=== PATIENT | female | born 1955 | race Caucasian/White ===

== ENCOUNTER → 2017-02-21 | Outpatient (CLI) | payer MEDICAID ==
[2017-01-17 09:00] VITALS: BP 123/73
--- NOTE | 2017-02-21 14:13 | RAD ---
HISTORY: Left foot pain Study: Three views of the left foot Comparison: None Findings: There are 3 cannulated screws noted within the 1st metatarsal and 1st proximal phalanx. No perihardw are lucency. Normal alignment. No acute fracture or dislocation. The soft tissues are unremarkable. There are degenerative changes of the 1st MTP joint and mild to moderate plantar calcaneal spurring . IMPRESSION: 1. Postsurgical changes of the 1st digit. 2. Degenerative changes as described. Reported By:
== END ==
LOC: RAD 13:12
PROVIDERS: ATTEND Orthopaedic Surgery
DX: M79.672 Pain in left foot (principal)
CPT/HCPCS: 73630

== ENCOUNTER 2017-03-04 16:20 | Emergency (ER) | payer MEDICAID ==
[2017-03-04 16:28] VITALS: BP 126/82; BMI 27.2
[2017-03-04] MEDS ORDERED: DEMEROL INJ IM ONE (17:01)
[2017-03-04] MEDS ORDERED: ZOFRAN INJ 4 MG VIAL IM ONE (17:01)
--- NOTE | 2017-03-04 17:01 | ED.ABDFE ---
HPI - Time seen Time seen: 17:00 - PCP Primary Care Physician: STEPH RAMIREZ - HPI Comment HPI Comment: HISTORY DIVERTICULITIS AND COLITIS. RECENT HOSPILIZATION FOR SAME. PAIN STARTED AGAIN FEW DAYS AGO AND GOT WORSE TODAY. NO FEVER. - Complaint Chief Complaint Doctors Comments: LEFT FLANK PAIN Chief Complaint:: PT C/O INTERMITTANT LEFT SIDE PAIN THAT STARTED SUNDAY AND THAT SHE WAS IN THE HOSPITAL FOR 6 DAYS FOR DIVERTICULITIS.. - Nurses notes reviewed Nurses Notes Review: Yes - Source History Provided: Patient - Mode of arrival Mode of Arrival: Ambulatory - Timing Onset of Chief Complaint: 02/28/17 Came on: Suddenly - Duration Duration: Intermittent Duration: Days - Location Location: [facility] - Severity Severity: Moderate - Quality Quality: Sharp - Context Onset: Suddenly - Modifying Worsening Factors: Nothing Improving Factors: Nothing - Associated signs and symptoms Associated Signs and Symptoms: Nausea PMH - PMH Past Medical History: Yes Past Medical History: Arthritis, Asthma, COPD, Coronary Artery Disease, Depression, Dyslipidemia, Hypertension Past Medical History Comment: DIVERTICULOSIS, THYROID Past Surgical History: Yes Surgical History: Hysterectomy, Ortho Surgery - Family History History of Family Medical Conditions: Yes Family Medical History: Cancer, Heart Failure, Hypertension - Social History Does patient currently use any type of tobacco product: Yes Have you used tobacco products in the last 12 months: Yes Type of Tobacco Use: Cigarettes How many years tobacco product used: 35 Does any household member use tobacco: No Alcohol Use: None Do you use any recreational Drugs:: No Lives With: Spouse Lives Where: Home - infectious screening In the last 2 months have you had wt loss of >10#?: NO Have you had fever, night sweats or hemotysis?: No Have you traveled outside the country in the last 6 months?: No Isolation: Standard ROS - Review of Systems Constitutional: No Symptoms Reported Eyes: No Symptoms Reported ENTM: No Symptoms Reported Respiratoy: No Symptoms Reported Cardiovascular: No Symptoms Reported Gastrointestinal/Abdominal: Abdominal Pain Genitourinary: Other (LT FLANK PAIN) Neurological: No Symptoms Reported Musculoskeletal: Back Pain (LEFT FLANK AREA.), Left, Other (FLANK PAIN) Integumentary: No Symptoms Reported Hematologic/Lymphatic: No Symptoms Reported Endocrine: No Symptoms Reported All Other Systems: Reviewed and Negative PE - Vital Signs Vitals: Temperature 98.8 F Pulse Rate 93 Respiratory Rate 20 Blood Pressure [Right Arm] 123/73 Blood Pressure [Left Arm] 134/77 Blood Pressure 126/82 O2 Sat by Pulse Oximetry 98 - General Limitations: No Limitations General Appearance: Alert - Head Head Exam: Normal Inspection - Eyes Eye exam: Normal Appearance - ENT ENT Exam: Normal External Ear Exam - Neck Neck Exam: Trachea Midline - Chest Chest Inspection: Symmetric Chest Wall Rise - Respiratory Respiratory Exam: Normal Lung Sounds Bilat Respiratory Exam: Bilateral Clear to Auscultation - Cardiovascular Cardiovascular Exam: Regular Rate, Normal Rhythm, Normal Heart Sounds - Abdominal Exam Abdominal Exam: Normal Bowel Sounds, Soft, Tenderness Abdominal Tenderness: LLQ - Rectal Rectal Exam: Deferred - Back Back Exam: (L) CVA Tenderness - Extremeties Extremities Exam: Normal Inspection - : Speculum Exam (Female): Deferred : Bimanual Exam (female): Deferred - Neurologic Neurological Exam: Alert, Oriented X3 - Skin Skin Exam: Normal Color MDM - Additional Information Obtained From Additional information provided by: Family - Differential Diagnosis Differential Diagnosis- Considerations may include:: Bowel Obstruction, Diverticular disease, Ovarian cyst/torsion, Urinary tract infection, Urolithiasis Course - Treatment Treatment: SEE ORDERS - Education/Counseling Education/Counseling: Patient, Family, Education Educated On: Treatment, Diagnosis, Needs for Follow Up ROR - Labs Reviewed Laboratory Results Reviewed?: Yes Result Diagrams: 03/04/17 17:05 03/04/17 17:05 Laboratory: WBC 7.4 X10^3/uL (3.6-10.0) 03/04/17 17:05 RBC 4.42 X10^6/uL (3.5-5.4) 03/04/17 17:05 Hgb 13.7 g/dL (12.0-16.0) 03/04/17 17:05 Hct 40.6 % (36.0-47.0) 03/04/17 17:05 MCV 91.9 fL (80.0-100.0) 03/04/17 17:05 MCH 31.0 pg (27.0-34.0) 03/04/17 17:05 MCHC 33.8 g/dL (33.0-35.0) 03/04/17 17:05 RDW 13.4 % (11.6-16.5) 03/04/17 17:05 Plt Count 165 X10^3/uL (150.0-450.0) 03/04/17 17:05 MPV 10.0 fL (7.4-11.0) 03/04/17 17:05 Neut % 50.7 % (42.0-75.0) 03/04/17 17:05 Lymph % 39.8 % (21.0-51.0) 03/04/17 17:05 [place] % 5.9 % (0.0-13.0) 03/04/17 17:05 Eos % 2.6 % (0.9-2.9) 03/04/17 17:05 Baso % 1.0 % (0.2-1.0) 03/04/17 17:05 Neut # 3.8 x10^3/uL (2.2-4.8) 03/04/17 17:05 Lymph # 3.0 X10^3/uL (1.3-2.9) H 03/04/17 17:05 [place] # 0.4 x10^3/uL (0.3-0.8) 03/04/17 17:05 Eos # 0.2 x10^3/uL (0.0-0.2) 03/04/17 17:05 Baso # 0.1 X10^3/uL (0.0-0.1) 03/04/17 17:05 Absolute Nucleated RBC 0.0 /100WBC 03/04/17 17:05 Sodium 144 mmol/L (136-145) 03/04/17 17:05 Corrected Sodium TNP 03/04/17 17:05 Potassium 4.0 mmol/L (3.5-5.1) 03/04/17 17:05 Chloride 107 mmol/L (98-107) 03/04/17 17:05 Carbon Dioxide 25.9 mmol/L (21-32) 03/04/17 17:05 BUN 15 mg/dL (7-18) 03/04/17 17:05 Creatinine 0.91 mg/dL (0.55-1.02) 03/04/17 17:05 Est GFR (MDRD) Af Amer > 60 (>60) 03/04/17 17:05 Est GFR (MDRD) Non-Af > 60 (>60) 03/04/17 17:05 Glucose 98 mg/dL (65-99) 03/04/17 17:05 Calcium 9.0 mg/dL (8.5-10.1) 03/04/17 17:05 Corrected Calcium TNP 03/04/17 17:05 Total Bilirubin 0.30 mg/dL (0.2-1.0) 03/04/17 17:05 AST 18 Units/L (15-37) 03/04/17 17:05 ALT 22 Units/L (12-78) 03/04/17 17:05 Alkaline Phosphatase 92 Units/L (46-116) 03/04/17 17:05 Total Protein 7.4 g/dL (6.4-8.2) 03/04/17 17:05 Albumin 3.5 g/dL (3.4-5.0) 03/04/17 17:05 Globulin 3.9 g/dL (2.5-4.5) 03/04/17 17:05 Albumin/Globulin Ratio 0.9 Ratio (1.1-2.1) L 03/04/17 17:05 Amylase 54 Units/L (25-115) 03/04/17 17:05 Lipase 50 Units/L (73-393) L 03/04/17 17:05 Specimen Type Clean catch urine 03/04/17 17:22 Urine Color Yellow (YELLOW) 03/04/17 17:22 Urine Appearance Clear (CLEAR) 03/04/17 17:22 Urine pH 7.0 (5.0 - 8.0) 03/04/17 17:22 Ur Specific [place] 1.010 (1.000-1.030) 03/04/17 17:22 Urine Protein Negative (NEGATIVE) 03/04/17 17:22 Urine Glucose (UA) Negative (NEGATIVE) 03/04/17 17:22 Urine Ketones Negative (NEGATIVE) 03/04/17 17:22 Urine Occult Blood Negative (NEGATIVE) 03/04/17 17:22 Urine Nitrite Negative (NEGATIVE) 03/04/17 17:22 Urine Bilirubin Negative (NEGATIVE) 03/04/17 17:22 Urine Urobilinogen Normal (NORMAL) 03/04/17 17:22 Ur Leukocyte Esterase Negative (NEGATIVE) 03/04/17 17:22 Urine RBC 0-2 /HPF (NEGATIVE) 03/04/17 17:22 Urine WBC 0-2 /HPF (NEGATIVE) 03/04/17 17:22 Ur Squamous Epith Cells Rare /HPF (NEGATIVE) 03/04/17 17:22 Urine Bacteria Negative /HPF (NEGATIVE) 03/04/17 17:22 Ur Culture Indicated? No/not indicated 03/04/17 17:22 - XRAY XRAY Interpreted by: Radiologist XRAY Findings: REPORT DISCUSS WITH PATIENT. - Diagnosis Discharge Problem: Left flank pain Abdominal pain Qualifiers: Abdominal location: left lower quadrant Qualified Code(s): R10.32 - Left lower quadrant pain - Discharge Plan Disposition: 01 HOME, SELF-CARE Condition: Stable - Follow ups/Referrals Follow ups/Referrals: SULEMA CHOI [Primary Care Provider] - 03/05/17 - Instructions Instructions: Flank Pain, [id number], Abdominal Pain, Adult, [id number] Additional Instructions: RETURN TO ED IF WORSE.
[2017-03-04] MEDS ORDERED: MORPHINE SULFATE INJ 4 MG IM ONE ×2 (17:04→19:18)
[2017-03-04] MEDS ORDERED: ZOFRAN INJ 4 MG VIAL ONE (17:13)
[2017-03-04] MEDS ORDERED: MORPHINE SULFATE INJ 4 MG ONE ×2 (17:13→19:19)
[2017-03-04 17:21] LABS: BASOPHILS # (AUTO) 0.1 X10^3/uL (0.0-0.1); EOSINOPHILS # (AUTO) 0.2 x10^3/uL (0.0-0.2); EOSINOPHILS % (AUTO) 2.6 % (0.9-2.9); HEMATOCRIT 40.6 % (36.0-47.0); HEMOGLOBIN 13.7 g/dL (12.0-16.0); LYMPHOCYTES % (AUTO) 39.8 % (21.0-51.0); MEAN CORPUSCULAR HGB CONC 33.8 g/dL (33.0-35.0); MEAN CORPUSCULAR VOLUME 91.9 fL (80.0-100.0); MONOCYTES # (AUTO) 0.4 x10^3/uL (0.3-0.8); MONOCYTES % (AUTO) 5.9 % (0.0-13.0); NEUTROPHILS # (AUTO) 3.8 x10^3/uL (2.2-4.8); NEUTROPHILS % (AUTO) 50.7 % (42.0-75.0); PLATELET COUNT 165 X10^3/uL (150.0-450.0); RED BLOOD COUNT 4.42 X10^6/uL (3.5-5.4); RED CELL DISTRIBUTION WIDTH 13.4 % (11.6-16.5); WHITE BLOOD COUNT 7.4 X10^3/uL (3.6-10.0)
[2017-03-04 17:28] LABS: ALANINE AMINOTRANSFERASE 22 Units/L (12-78); ALBUMIN 3.5 g/dL (3.4-5.0); ALKALINE PHOSPHATASE 92 Units/L (46-116); AMYLASE 54 Units/L (25-115); ASPARTATE AMINO TRANSFERASE 18 Units/L (15-37); BLOOD UREA NITROGEN 15 mg/dL (7-18); CARBON DIOXIDE 25.9 mmol/L (21-32); CHLORIDE 107 mmol/L (98-107); CREATININE 0.91 mg/dL (0.55-1.02); GLUCOSE 98 mg/dL (65-99); LIPASE 50 Units/L (73-393); SODIUM 144 mmol/L (136-145); TOTAL PROTEIN 7.4 g/dL (6.4-8.2); eGFR BLACK RACES > 60 (>60); eGFR NON BLACK RACES > 60 (>60)
[2017-03-04 17:43] LABS: BILIRUBIN,URINE NEGATIVE (NEGATIVE); BLOOD/HEMOGLOBIN,URINE NEGATIVE (NEGATIVE); GLUCOSE, URINE NEGATIVE (NEGATIVE); KETONES,URINE NEGATIVE (NEGATIVE); LEUKOCYTE ESTERASE ,URINE NEGATIVE (NEGATIVE); NITRITES,URINE NEGATIVE (NEGATIVE); PROTEIN,URINE NEGATIVE (NEGATIVE); UROBILINOGEN,URINE NORMAL (NORMAL)
[2017-03-04 17:51] LABS: APPEARANCE,URINE CLEAR (CLEAR); COLOR,URINE YELLOW (YELLOW); RBC,URINE 0-2 /HPF (NEGATIVE); SQUAMOUS EPITHELIAL CELL,UR RARE /HPF (NEGATIVE)
[2017-03-04 17:52] LABS: BACTERIA,URINE NEGATIVE /HPF (NEGATIVE)
--- NOTE | 2017-03-04 19:23 | CT ---
Abdomen and pelvis CT without contrast: Indication: Left flank pain. Comparison: Abdomen and pelvis CT dated January 12, 2017. Technique: Helical CT imaging of the abdomen and pelvis was performed without the use of contrast. C ontinuous transverse reconstructions as well as multiplanar reformations were provided. Findings: Trace left pleural effusion and lower lobe atelectasis noted. Trace atherosclerosis noted. No acute abnormality of the solid abdominal viscera is seen, as limited by the noncontrast technique . Nodular splenic and of pancreatic calcifications are once again noted. The inflammatory change adjacent to the splenic flexure has appreciably improved. No discrete fluid collection or evidence of perforation is identified. Otherwise, the imaged gastrointestinal tract is without acute abnormality. Again seen are numerous colonic diverticula. There is no acute skeletal abnormality or worrisome skeletal lesion. Impression: 1. Mild persistent, but markedly improved, inflammatory change of the splenic flexure, consistent wi th improving colitis. 2. No new abnormality of the abdomen or pelvis. 3. Trace left pleural effusion. Reported By:
[2017-03-04] MEDS ORDERED: NORCO 10/325 TAB PO ONE (19:41)
[2017-03-04] MEDS ORDERED: NORCO 10/325 TAB ONE (19:44)
== END 2017-03-04 19:53 | disposition home or self-care (01) ==
LOC: ER 16:42
DX: R10.32 Left lower quadrant pain (principal); J90 Pleural effusion, not elsewhere classified
CPT/HCPCS: 36415; 74176; 80053; 81001; 82150; 83690; 85025; 96372; 99283; J2270; J2405

== ENCOUNTER 2017-03-10 19:02 | Emergency (ER) | payer MEDICAID ==
[2017-03-10 19:11] VITALS: BP 141/74; BMI 26.2
[2017-03-10] MEDS ORDERED: ZOFRAN INJ 4 MG VIAL IVP ONE (21:03)
[2017-03-10] MEDS ORDERED: MORPHINE SULFATE INJ 4 MG IVP ONE (21:06)
--- NOTE | 2017-03-10 21:06 | DR.GENAD ---
HPI - PCP Primary Care Physician: Hafsa Zhu HPI Comment HPI Comment: HISTORY BELOW. - Complaint/Symptoms Chief Complaint Doctors Comments: PATIENT HAVE LLQ ABDOMINAL PAIN WITH NAUSEA AND DIARRHEA. RECENT DIVETICULIS. HEALING BUT CONTINUE TO HAVE INTERMITTENT SHARP PAIN WITH NAUSE AND VOMITING WITH LOW GRADE FEVER. WORSE TODAY. Chief Complaint:: "pain in left side of stomach, nausea, headache. Well i have sinusitis a little bit to and when i have to cough i about scream it hurts so bad on the side of my stomach." - Nurses notes reviewed Nurses Notes Review: Yes - Source History Provided: Patient - Mode of Arrival Mode of Arrival: Ambulatory - Timing Onset of Chief Complaint: 03/04/17 Came on: Suddenly - Duration Duration: Constant Duration: Days - Severity Severity: Moderate PMH - PMH Past Medical History: Yes Past Medical History: Arthritis, Asthma, COPD, Coronary Artery Disease, Depression, Dyslipidemia, Hypertension Past Surgical History: Yes Surgical History: Hysterectomy, Ortho Surgery - Family History History of Family Medical Conditions: Yes Family Medical History: Cancer, Heart Failure, Hypertension - Social History Type of Tobacco Use: Cigarettes Alcohol Use: None Do you use any recreational Drugs:: No Lives With: Family Lives Where: Home - infectious screening Have you traveled outside the country in the last 6 months?: No ROS - Review of Systems Constitutional: Weakness, Fatigue, Loss of Appetite Eyes: No Symptoms Reported ENTM: No Symptoms Reported Respiratoy: No Symptoms Reported Cardiovascular: No Symptoms Reported Gastrointestinal/Abdominal: Abdominal Pain, Nausea, Vomiting Genitourinary: No Symptoms Reported. negative: Dysuria, Frequency, Hematuria Neurological: No Symptoms Reported Musculoskeletal: Muscle Pain Integumentary: No Symptoms Reported Hematologic/Lymphatic: No Symptoms Reported Endocrine: No Symptoms Reported All Other Systems: Reviewed and Negative PE - Vital Signs Vitals: Temperature 98.2 F Pulse Rate 69 Respiratory Rate 18 Blood Pressure [Right Arm] 123/73 Blood Pressure [Left Arm] 134/77 Blood Pressure 141/74 O2 Sat by Pulse Oximetry 97 - General Limitations: No Limitations General Appearance: Alert - Head Head Exam: Normal Inspection - Eyes Eye exam: Normal Appearance - ENT ENT Exam: Normal External Ear Exam External Ear Exam: Normal External Inspection TM/Canal Exam: Bilateral Normal Nose Exam: Normal Nose Exam Mouth Exam: Normal Inspection Throat Exam: Normal Inspection - Neck Neck Exam: Normal Inspection - Chest Chest Inspection: Symmetric Chest Wall Rise - Respiratory Respiratory Exam: Normal Lung Sounds Bilat Respiratory Exam: Bilateral Clear to Auscultation - Cardiovascular Cardiovascular Exam: Regular Rate, Normal Rhythm, Normal Heart Sounds - Abdominal Exam Abdominal Exam: Normal Bowel Sounds, Soft, Tenderness Abdominal Tenderness: LLQ, Moderate - Extremities Extremities Exam: Normal Inspection - Back Back Exam: Normal Inspection - Neurologic Neurological Exam: Alert, Oriented X3 - Psychiatric Psychiatric Exam: Anxious - Skin Skin Exam: Normal Color MDM - Additional Information Additional Information Obtained From: Family - Differential Diagnosis Differential Diagnosis: DIVERTICULITIS, BOWEL OBSTRUCTION, ABDOMINAL PAIN, UTI Course - Treatment Treatment: SEE ORDERS - Education/Counseling Education/Counseling: Patient, Family, Education Educated On: Treatment, Diagnosis, Needs for Follow Up ROR - Labs Reviewed Result Diagrams: 03/10/17 21:10 03/10/17 21:10 Laboratory: WBC 7.4 X10^3/uL (3.6-10.0) 03/10/17 21:10 RBC 4.51 X10^6/uL (3.5-5.4) 03/10/17 21:10 Hgb 14.0 g/dL (12.0-16.0) 03/10/17 21:10 Hct 42.0 % (36.0-47.0) 03/10/17 21:10 MCV 93.1 fL (80.0-100.0) 03/10/17 21:10 MCH 31.1 pg (27.0-34.0) 03/10/17 21:10 MCHC 33.4 g/dL (33.0-35.0) 03/10/17 21:10 RDW 13.1 % (11.6-16.5) 03/10/17 21:10 Plt Count 237 X10^3/uL (150.0-450.0) 03/10/17 21:10 MPV 8.7 fL (7.4-11.0) 03/10/17 21:10 Neut % 43.7 % (42.0-75.0) 03/10/17 21:10 Lymph % 46.0 % (21.0-51.0) 03/10/17 21:10 [place] % 6.2 % (0.0-13.0) 03/10/17 21:10 Eos % 3.0 % (0.9-2.9) H 03/10/17 21:10 Baso % 1.1 % (0.2-1.0) H 03/10/17 21:10 Neut # 3.2 x10^3/uL (2.2-4.8) 03/10/17 21:10 Lymph # 3.4 X10^3/uL (1.3-2.9) H 03/10/17 21:10 [place] # 0.5 x10^3/uL (0.3-0.8) 03/10/17 21:10 Eos # 0.2 x10^3/uL (0.0-0.2) 03/10/17 21:10 Baso # 0.1 X10^3/uL (0.0-0.1) 03/10/17 21:10 Absolute Nucleated RBC 0.1 /100WBC 03/10/17 21:10 Sodium 144 mmol/L (136-145) 03/10/17 21:10 Corrected Sodium TNP 03/10/17 21:10 Potassium 4.2 mmol/L (3.5-5.1) 03/10/17 21:10 Chloride 107 mmol/L (98-107) 03/10/17 21:10 Carbon Dioxide 29.5 mmol/L (21-32) 03/10/17 21:10 BUN 8 mg/dL (7-18) 03/10/17 21:10 Creatinine 0.69 mg/dL (0.55-1.02) 03/10/17 21:10 Est GFR (MDRD) Af Amer > 60 (>60) 03/10/17 21:10 Est GFR (MDRD) Non-Af > 60 (>60) 03/10/17 21:10 Glucose 98 mg/dL (65-99) 03/10/17 21:10 Calcium 9.4 mg/dL (8.5-10.1) 03/10/17 21:10 Corrected Calcium TNP 03/10/17 21:10 Total Bilirubin 0.50 mg/dL (0.2-1.0) 03/10/17 21:10 AST 20 Units/L (15-37) 03/10/17 21:10 ALT 21 Units/L (12-78) 03/10/17 21:10 Alkaline Phosphatase 101 Units/L (46-116) 03/10/17 21:10 Total Protein 7.8 g/dL (6.4-8.2) 03/10/17 21:10 Albumin 4.0 g/dL (3.4-5.0) 03/10/17 21:10 Globulin 3.8 g/dL (2.5-4.5) 03/10/17 21:10 Albumin/Globulin Ratio 1.1 Ratio (1.1-2.1) 03/10/17 21:10 Amylase 40 Units/L (25-115) 03/10/17 21:10 Lipase 56 Units/L (73-393) L 03/10/17 21:10 - Diagnosis Discharge Problem: Abdominal pain, Diverticulitis of colon - Discharge Plan Disposition: 01 HOME, SELF-CARE Condition: Stable Prescriptions: Ciprofloxacin HCl [CIPRO 500 MG TAB *] 500 mg PO Q12H #20 tab Metronidazole [Flagyl Tab 500 mg] 500 mg PO TID #30 tab Ondansetron HCl [Zofran Tab 4 mg] 4 mg PO Q8H PRN #15 tab PRN Reason: Nausea/Vomiting - Follow ups/Referrals Follow ups/Referrals: SULEMA CHOI [Primary Care Provider] - 2 days - Instructions Instructions: Diverticulosis Additional Instructions: return to ed if worse.
[2017-03-10] MEDS ORDERED: ZOFRAN INJ 4 MG VIAL ONE (21:07)
[2017-03-10 21:14] LABS: BASOPHILS # (AUTO) 0.1 X10^3/uL (0.0-0.1); BASOPHILS % (AUTO) 1.1 % (0.2-1.0); EOSINOPHILS # (AUTO) 0.2 x10^3/uL (0.0-0.2); LYMPHOCYTES # (AUTO) 3.4 X10^3/uL (1.3-2.9); MEAN CORPUSCULAR HEMOGLOBIN 31.1 pg (27.0-34.0); MEAN CORPUSCULAR HGB CONC 33.4 g/dL (33.0-35.0); MEAN CORPUSCULAR VOLUME 93.1 fL (80.0-100.0); MEAN PLATELET VOLUME 8.7 fL (7.4-11.0); MONOCYTES # (AUTO) 0.5 x10^3/uL (0.3-0.8); MONOCYTES % (AUTO) 6.2 % (0.0-13.0); NEUTROPHILS # (AUTO) 3.2 x10^3/uL (2.2-4.8); NEUTROPHILS % (AUTO) 43.7 % (42.0-75.0); PLATELET COUNT 237 X10^3/uL (150.0-450.0); RED BLOOD COUNT 4.51 X10^6/uL (3.5-5.4); RED CELL DISTRIBUTION WIDTH 13.1 % (11.6-16.5); WHITE BLOOD COUNT 7.4 X10^3/uL (3.6-10.0)
[2017-03-10] MEDS ORDERED: MORPHINE SULFATE INJ 4 MG ONE (21:23)
[2017-03-10 21:26] LABS: ALANINE AMINOTRANSFERASE 21 Units/L (12-78); ALKALINE PHOSPHATASE 101 Units/L (46-116); AMYLASE 40 Units/L (25-115); ASPARTATE AMINO TRANSFERASE 20 Units/L (15-37); BLOOD UREA NITROGEN 8 mg/dL (7-18); CALCIUM 9.4 mg/dL (8.5-10.1); CARBON DIOXIDE 29.5 mmol/L (21-32); CHLORIDE 107 mmol/L (98-107); CREATININE 0.69 mg/dL (0.55-1.02); GLUCOSE 98 mg/dL (65-99); LIPASE 56 Units/L (73-393); SODIUM 144 mmol/L (136-145); TOTAL PROTEIN 7.8 g/dL (6.4-8.2); eGFR BLACK RACES > 60 (>60); eGFR NON BLACK RACES > 60 (>60)
[2017-03-10] MEDS ORDERED: NS 100 ML IV + SPIKE MINIBAG* 100 ML IV ONE (21:47)
--- NOTE | 2017-03-10 22:37 | CT ---
HISTORY: Abdominal pain Study: CT abdomen and pelvis with contrast Comparison: March 04, 2017 Technique: Multiple axial images of the abdomen and pelvis were obtained from the lung bases to the pubic symph ysis with the administration of IV contrast. Findings: The visualized portions of the lung bases are unremarkable. Calcific densities within the liver and spleen may reflect granulomatous change. Otherwise the liver, spleen, pancreas, adrenals, and ki dneys are unremarkable in appearance. No CT evidence of hydronephrosis is identified. Evaluation of the stomach, small bowel, and colon is limited without oral contrast. Scattered diverticula are seen within the colon primarily the descending and sigmoid colon. Mild pericolonic stranding is seen adj acent to the descending colon and demonstrates interval improvement since prior study. IMPRESSION: 1. Diverticulosis with continued interval improvement of the previously noted colitis/diverticulitis involving the descending colon. Reported By:
[2017-03-10] MEDS ORDERED: ZOFRAN SYRUP 4 MG UDC PO ONE ×2 (23:48→23:51)
[2017-03-10] MEDS ORDERED: ZOFRAN SYRUP 4 MG UDC ONE (23:53)
== END 2017-03-10 23:58 | disposition home or self-care (01) ==
LOC: ER 19:02
DX: K57.32 Diverticulitis of large intestine without perforation or abscess without bleeding (principal); R10.32 Left lower quadrant pain
CPT/HCPCS: 36415; 74177; 80053; 82150; 83690; 85025; 96365; 96374; 96375; 99283; A4222; J2270; J2405; Q0162

== ENCOUNTER → 2017-03-28 | Outpatient (CLI) | payer MEDICAID ==
[2017-03-10 19:11] VITALS: BP 141/74
[2017-03-28 13:15] LABS: BASOPHILS # (AUTO) 0.1 X10^3/uL (0.0-0.1); BASOPHILS % (AUTO) 0.9 % (0.2-1.0); EOSINOPHILS # (AUTO) 0.3 x10^3/uL (0.0-0.2); EOSINOPHILS % (AUTO) 3.4 % (0.9-2.9); HEMOGLOBIN 14.1 g/dL (12.0-16.0); LYMPHOCYTES # (AUTO) 2.8 X10^3/uL (1.3-2.9); LYMPHOCYTES % (AUTO) 36.9 % (21.0-51.0); MEAN CORPUSCULAR HEMOGLOBIN 30.8 pg (27.0-34.0); MEAN CORPUSCULAR HGB CONC 33.4 g/dL (33.0-35.0); MEAN CORPUSCULAR VOLUME 92.1 fL (80.0-100.0); MEAN PLATELET VOLUME 9.9 fL (7.4-11.0); MONOCYTES # (AUTO) 0.4 x10^3/uL (0.3-0.8); NEUTROPHILS # (AUTO) 4.1 x10^3/uL (2.2-4.8); NEUTROPHILS % (AUTO) 53.8 % (42.0-75.0); PLATELET COUNT 168 X10^3/uL (150.0-450.0); RED BLOOD COUNT 4.57 X10^6/uL (3.5-5.4); RED CELL DISTRIBUTION WIDTH 13.7 % (11.6-16.5); WHITE BLOOD COUNT 7.6 X10^3/uL (3.6-10.0)
[2017-03-28 13:20] LABS: ALANINE AMINOTRANSFERASE 46 Units/L (12-78); ALBUMIN 3.7 g/dL (3.4-5.0); ALKALINE PHOSPHATASE 90 Units/L (46-116); ASPARTATE AMINO TRANSFERASE 40 Units/L (15-37); BLOOD UREA NITROGEN 8 mg/dL (7-18); CALCIUM 8.8 mg/dL (8.5-10.1); CHLORIDE 107 mmol/L (98-107); CREATININE 0.85 mg/dL (0.55-1.02); GLUCOSE 82 mg/dL (65-99); SODIUM 142 mmol/L (136-145); TOTAL PROTEIN 7.3 g/dL (6.4-8.2); eGFR BLACK RACES > 60 (>60); eGFR NON BLACK RACES > 60 (>60)
--- NOTE | 2017-03-28 13:49 | RAD ---
HISTORY: Abdominal pain Study: Acute abdominal series Comparison: January 13, 2017 Findings: The trachea is midline. The cardiac silhouette is unremarkable. The lungs are clear without focal infiltrate or effusion. The bony thorax is unremarkable. Flat plate and upright evaluation of the abdomen demonstrates a normal bowel gas pattern. No pneumop eritoneum is identified.. No pathological soft tissue mass or calcification can be observed. The b jack structures are grossly intact. IMPRESSION: 1. No acute cardiopulmonary disease. 2. No evidence for acute abdominal pathology identified. Reported By:
== END | disposition home or self-care (01) ==
LOC: RAD 12:10
PROVIDERS: ATTEND Internal Medicine
DX: R19.7 Diarrhea, unspecified (principal); R19.5 Other fecal abnormalities; R10.84 Generalized abdominal pain
CPT/HCPCS: 36415; 74022; 80053; 82270; 85025; 87045; 87427; 87493; 87899

== ENCOUNTER 2017-07-10 06:51 | Emergency (ER) | payer MEDICAID ==
[2017-07-10 07:06] VITALS: BMI 24.7
[2017-07-10 07:09] VITALS: BP 135/76
--- NOTE | 2017-07-10 07:32 | DR.GENAD ---
HPI - PCP Primary Care Physician: DR. GREENE - HPI Comment HPI Comment: HAVE DENTAL CARIES AND ALSO BREAK PIECE OFF HER TEETH TWICE. - Complaint/Symptoms Chief Complaint Doctors Comments: TOOTHACHE FOR SEVERAL DAYS NOW WITH FEVER AND SINUS PAIN. Chief Complaint:: "MY TOOTH IS BROKEN AND THIS PAIN IS AWFUL." Self Treatment fo Chief Complaint: SHE IS OUT OF ALL HER MEDS - Nurses notes reviewed Nurses Notes Review: Yes - Source History Provided: Patient - Mode of Arrival Mode of Arrival: Ambulatory - Timing Onset of Chief Complaint: 06/19/17 Came on: Gradually - Duration Duration: Constant Duration: Days - Severity Severity: Moderate PMH - PMH Past Medical History: Yes Past Medical History: Arthritis, Coronary Artery Disease, Migraines, GERD, Headaches, Hypertension Past Medical History Comment: HERNIA, Past Surgical History: Yes Surgical History: Angioplasty/Stents, Hysterectomy, Tonsillectomy Past Surgical History Comment: NECK SURGERY - Family History History of Family Medical Conditions: Yes Family Medical History: Cancer, [place], Coronary Artery Disease, Heart Failure, Sudden Cardiac , Hypertension - Social History Does patient currently use any type of tobacco product: Yes Have you used tobacco products in the last 12 months: Yes Type of Tobacco Use: Cigarettes How many years tobacco product used: 30 Does any household member use tobacco: Yes Alcohol Use: None Do you use any recreational Drugs:: No Lives With: Family Lives Where: Home - infectious screening In the last 2 months have you had wt loss of >10#?: NO Have you had fever, night sweats or hemotysis?: No Have you traveled outside the country in the last 6 months?: No ROS - Review of Systems Constitutional: Fever. negative: Chills Eyes: No Symptoms Reported. negative: Eye Pain, Discharge ENTM: Nose Congestion, Mouth Pain, Mouth Swelling. negative: Ear Pain, Nose Discharge, Throat Pain Respiratoy: negative: Short of Breath, Wheezing, Hemoptysis Cardiovascular: No Symptoms Reported Gastrointestinal/Abdominal: No Symptoms Reported Genitourinary: No Symptoms Reported Neurological: Headache Musculoskeletal: No Symptoms Reported Integumentary: No Symptoms Reported Hematologic/Lymphatic: No Symptoms Reported Endocrine: No Symptoms Reported All Other Systems: Reviewed and Negative PE - Vital Signs Vitals: Temperature 97.8 F Pulse Rate 77 Respiratory Rate 18 Blood Pressure [Right Arm] 123/73 Blood Pressure [Left Arm] 134/77 Blood Pressure 135/76 O2 Sat by Pulse Oximetry 97 - General Limitations: No Limitations General Appearance: Alert - Head Head Exam: Normal Inspection - Eyes Eye exam: Normal Appearance - ENT ENT Exam: Normal External Ear Exam TM/Canal Exam: Bilateral Normal Nose Exam: Normal Nose Exam Mouth Exam: Other (RIGHT UPPER AND LOWER CANINE CIP OFF, GUM RED AND SWOLLEN.) Throat Exam: Normal Inspection - Neck Neck Exam: Trachea Midline - Chest Chest Inspection: Symmetric Chest Wall Rise - Respiratory Respiratory Exam: Normal Lung Sounds Bilat Respiratory Exam: Bilateral Clear to Auscultation - Cardiovascular Cardiovascular Exam: Regular Rate, Normal Rhythm, Normal Heart Sounds - Abdominal Exam Abdominal Exam: Normal Bowel Sounds, Soft. negative: Tenderness - Extremities Extremities Exam: Normal Inspection - Back Back Exam: Paraspinal Tenderness - Psychiatric Psychiatric Exam: Normal Affect, Normal Mood - Skin Skin Exam: Normal Color MDM - Differential Diagnosis Differential Diagnosis: DENTAL PAIN, GINGIVITIS Course - Treatment Treatment: SEE ORDERS - Education/Counseling Education/Counseling: Patient, Education Educated On: Diagnosis, Needs for Follow Up - Diagnosis Discharge Problem: Pain, dental, Gingivitis - Discharge Plan Condition: Stable Prescriptions: Amoxicillin [Amoxil 875 mg] 875 mg PO Q12H #20 tab Tramadol HCl 50 mg PO TID PRN #15 tablet PRN Reason: - Follow ups/Referrals Follow ups/Referrals: RENZO GREENE [Primary Care Provider] - 3 days - Instructions Instructions: Gingivitis, [id number], Dental Abscess, [id number] Additional Instructions: RETURN TO ED IF WORSE.
[2017-07-10] MEDS ORDERED: PHENERGAN TAB 25 MG PO PRN (07:54)
[2017-07-10] MEDS ORDERED: ULTRAM PO ONE (07:55)
[2017-07-10] MEDS ORDERED: ULTRAM ONE (07:56)
== END 2017-07-10 08:00 | disposition home or self-care (01) ==
LOC: ER 07:14
DX: K05.10 Chronic gingivitis, plaque induced (principal); K08.89 Other specified disorders of teeth and supporting structures
CPT/HCPCS: 99282

== ENCOUNTER 2017-08-01 04:26 | Emergency (ER) | payer MEDICAID ==
[2017-08-01 04:34] VITALS: BP 145/93; BMI 23.3
--- NOTE | 2017-08-01 05:11 | DR.GENAD ---
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 Chief Complaint:: pt states" I'm suppose to have back surgery and possibly neck surgery my whole back hurts" - Source History Provided: Patient - Mode of Arrival Mode of Arrival: Ambulatory - Timing Onset of Chief Complaint: 08/01/17 PMH - PMH Past Medical History: Yes Past Medical History: Arthritis, Coronary Artery Disease, Migraines, GERD, Headaches, Hypertension Past Surgical History: Yes Surgical History: Angioplasty/Stents, Hysterectomy, Tonsillectomy - Family History History of Family Medical Conditions: Yes Family Medical History: Cancer, [place], Coronary Artery Disease, Heart Failure, Sudden Cardiac , Hypertension - Social History Type of Tobacco Use: Cigarettes Does any household member use tobacco: Yes Alcohol Use: Occasionally Do you use any recreational Drugs:: No Lives With: Family Lives Where: Home - infectious screening In the last 2 months have you had wt loss of >10#?: NO Have you had fever, night sweats or hemotysis?: No Have you traveled outside the country in the last 6 months?: No Isolation: Standard ROS - Review of Systems Eyes: No Symptoms Reported ENTM: No Symptoms Reported Respiratoy: No Symptoms Reported Cardiovascular: No Symptoms Reported Gastrointestinal/Abdominal: No Symptoms Reported Genitourinary: No Symptoms Reported Neurological: No Symptoms Reported Musculoskeletal: No Symptoms Reported Integumentary: No Symptoms Reported Hematologic/Lymphatic: No Symptoms Reported Endocrine: No Symptoms Reported Psychiatric: No Symptoms Reported All Other Systems: Reviewed and Negative PE - Vital Signs Vitals: Temperature 98.2 F Pulse Rate 102 Respiratory Rate 18 Blood Pressure [Right Arm] 123/73 Blood Pressure [Left Arm] 134/77 Blood Pressure 145/93 O2 Sat by Pulse Oximetry 99 - General Limitations: No Limitations General Appearance: Alert, In No Apparent Distress - Head Head Exam: Normal Inspection, Atraumatic - Eyes Eye exam: Normal Appearance, PERRL, EOMI - ENT ENT Exam: Normal Exam External Ear Exam: Normal External Inspection TM/Canal Exam: Bilateral Normal Nose Exam: Normal Nose Exam Mouth Exam: Normal Inspection Throat Exam: Normal Inspection - Neck Neck Exam: Normal Inspection - Chest Chest Inspection: Normal Inspection - Respiratory Respiratory Exam: Normal Lung Sounds Bilat Respiratory Exam: Bilateral Clear to Auscultation - Cardiovascular Cardiovascular Exam: Regular Rate, Normal Rhythm - Abdominal Exam Abdominal Exam: Normal Inspection, Normal Bowel Sounds Abdominal Tenderness: negative: RUQ, RLQ, LUQ, LLQ, Epigastrium, Suprapubic, Diffuse, Mild, Moderate, Severe, Other - Extremities Extremities Exam: Normal Inspection, Full ROM - Back Back Exam: Normal Inspection - Neurologic Neurological Exam: Alert, Oriented X3, CN II-XII Intact - Psychiatric Psychiatric Exam: Normal Affect - Skin Skin Exam: Warm, Dry, Intact Course - Reevaluation 1st: Improved - Diagnosis Discharge Problem: Hip pain, chronic Qualifiers: Laterality: right Qualified Code(s): M25.551 - Pain in right hip; G89.29 - Other chronic pain Degenerative joint disease (DJD) of lumbar spine Qualifiers: Spinal osteoarthritis complication: unspecified spinal osteoarthritis Qualified Code(s): M47.816 - Spondylosis without myelopathy or radiculopathy, lumbar region - Discharge Plan Condition: Stable - Follow ups/Referrals Follow ups/Referrals: NFD,None [Primary Care Provider] - 3 days - Instructions
[2017-08-01] MEDS ORDERED: MORPHINE SULFATE INJ 4 MG IVP ONE (05:13)
[2017-08-01] MEDS ORDERED: MORPHINE SULFATE INJ 4 MG ONE ×2 (05:16→05:24)
[2017-08-01] MEDS ORDERED: MORPHINE SULFATE INJ 4 MG IM ONE (05:23)
== END 2017-08-01 06:10 | disposition home or self-care (01) ==
LOC: ER 04:26
DX: M25.551 Pain in right hip (principal); G89.29 Other chronic pain; M47.816 Spondylosis without myelopathy or radiculopathy, lumbar region
CPT/HCPCS: 96372; 99282; A4222; J2270

== ENCOUNTER → 2017-09-06 | Outpatient (CLI) | payer MEDICAID ==
[2017-09-06 10:03] LABS: ALANINE AMINOTRANSFERASE 22 Units/L (12-78); ALBUMIN 3.8 g/dL (3.4-5.0); ALKALINE PHOSPHATASE 78 Units/L (46-116); ASPARTATE AMINO TRANSFERASE 21 Units/L (15-37); BLOOD UREA NITROGEN 15 mg/dL (7-18); CALCIUM 9.1 mg/dL (8.5-10.1); CARBON DIOXIDE 25.3 mmol/L (21-32); CHLORIDE 105 mmol/L (98-107); CHOL/HDL RATIO 2.6 (0.0-5.0); CHOLESTEROL 196 mg/dL (0-200); CREATININE 0.71 mg/dL (0.55-1.02); HDL CHOLESTEROL 76 mg/dL (40-60); SODIUM 138 mmol/L (136-145); TOTAL PROTEIN 7.1 g/dL (6.4-8.2); TRIGLYCERIDES 96 mg/dL (0-150); TSH (3RD GENERATION) 3.887 uIU/mL (0.358-3.74); eGFR BLACK RACES > 60 (>60); eGFR NON BLACK RACES > 60 (>60)
[2017-09-06 10:20] LABS: EOSINOPHILS # (AUTO) 0.1 x10^3/uL (0.0-0.2); EOSINOPHILS % (AUTO) 3.3 % (0.9-2.9); HEMATOCRIT 42.1 % (36.0-47.0); HEMOGLOBIN 14.6 g/dL (12.0-16.0); LYMPHOCYTES % (AUTO) 44.9 % (21.0-51.0); MEAN CORPUSCULAR HEMOGLOBIN 32.7 pg (27.0-34.0); MEAN CORPUSCULAR HGB CONC 34.7 g/dL (33.0-35.0); MEAN CORPUSCULAR VOLUME 94.3 fL (80.0-100.0); MEAN PLATELET VOLUME 10.4 fL (7.4-11.0); MONOCYTES # (AUTO) 0.2 x10^3/uL (0.3-0.8); MONOCYTES % (AUTO) 5.4 % (0.0-13.0); NEUTROPHILS # (AUTO) 2.1 x10^3/uL (2.2-4.8); NEUTROPHILS % (AUTO) 45.4 % (42.0-75.0); PLATELET COUNT 162 X10^3/uL (150.0-450.0); RED BLOOD COUNT 4.47 X10^6/uL (3.5-5.4); RED CELL DISTRIBUTION WIDTH 13.3 % (11.6-16.5); WHITE BLOOD COUNT 4.5 X10^3/uL (3.6-10.0)
[2017-09-06 10:26] LABS: ERYTHROCYTE SEDIMENTATION RATE 3 MM/HOUR (0-20)
--- NOTE | 2017-09-06 19:12 | RAD ---
ACUTE ABDOMINAL SERIES CLINICAL HISTORY: 61-year-old female with abdominal pain. COMPARISON: CT of the abdomen and pelvis 03/10/2017, acute abdominal series 03/28/2017. FINDINGS: ACDF is present. PA chest radiograph demonstrates normal cardiopericardial silhouette. There is no fo rahul consolidation, pleural effusion or pneumothorax. Pulmonary vascularity is normal. Abdominal radiographs demonstrate a nonobstructive bowel gas pattern. Gas and stool are seen througho ut the colon. There is no small bowel distention. There is no radiographic evidence of pneumoperitone um. Imaged osseous structures are intact. Soft tissues are unremarkable. IMPRESSION: 1. No acute cardiopulmonary process. 2. Nonobstructive bowel gas pattern without radiographic evidence of pneumoperitoneum. Reported By:
[2017-09-10 06:40] LABS: DEHYDROEPIANDROSTERONE SULFATE 12 ug/dL (13-130)
--- NOTE | 2017-09-10 08:53 | RAD ---
HISTORY: Right rib pain Study: Right ribs four views Comparison: 09/06/2017 Findings: The heart is within normal limits in size. The jan are normal. The aorta is ectatic. The lung blevins are clear. Examination of the right ribs demonstrated no evidence for fracture, lytic, or blastic le mariangel. No pneumothorax or pleural effusion is identified. IMPRESSION: Intact right ribs Lungs clear Reported By:
[2017-09-12 07:03] LABS: ESTROGENS TOTAL 16.5 pg/mL
== END ==
LOC: LAB 09:15
PROVIDERS: ATTEND Nurse Practitioner Family
DX: I10 Essential (primary) hypertension (principal); E78.4 Other hyperlipidemia; M15.0 Primary generalized (osteo)arthritis; N95.1 Menopausal and female climacteric states; R53.83 Other fatigue; R10.84 Generalized abdominal pain; R07.81 Pleurodynia
CPT/HCPCS: 36415; 71111; 74022; 80053; 80061; 82627; 82671; 84144; 84270; 84402; 84403; 84443; 85025; 85652; 86140

== ENCOUNTER 2017-11-12 12:58 | Emergency (ER) | payer MEDICAID ==
[2017-11-12 13:10] VITALS: BP 131/72; BMI 20.5
[2017-11-12] MEDS ORDERED: DECADRON INJ IM ONE (14:12)
[2017-11-12] MEDS ORDERED: DUONEB 0.5 MG/3 MG NEB ONE (14:12)
--- NOTE | 2017-11-12 14:13 | DR.GENAD ---
HPI - HPI Comment HPI Comment: WORSE TODAY. PERSISTENT COUGHING. FEVER ON AND OFF. EAR NOT DRAINING. - Complaint/Symptoms Chief Complaint Doctors Comments: CHEST CONGESTION, EAR PAIN AND RIGHT SHOULDER PAIN TIMES ONE WEEK. Chief Complaint:: "CHEST CONGESTION, AND COUGHING FOR A WEEK NOW" MY RIGHT EAR IS HURTING AND MY RIGHT SHOULDER I THINK FROM PULLING SOMETHING" - Nurses notes reviewed Nurses Notes Review: Yes - Source History Provided: Patient - Mode of Arrival Mode of Arrival: Ambulatory - Timing Onset of Chief Complaint: 11/05/17 Came on: Suddenly - Duration Duration: Constant Duration: Days - Severity Severity: Moderate PMH - PMH Past Medical History: Yes Past Medical History: Arthritis, Coronary Artery Disease, Migraines, GERD, Headaches, Hypertension Past Surgical History: Yes Surgical History: Angioplasty/Stents, Hysterectomy, Tonsillectomy - Family History History of Family Medical Conditions: Yes Family Medical History: Cancer, [place], Coronary Artery Disease, Heart Failure, Sudden Cardiac , Hypertension - Social History Does patient currently use any type of tobacco product: Yes Have you used tobacco products in the last 12 months: Yes Type of Tobacco Use: Cigarettes How many years tobacco product used: 13 Does any household member use tobacco: No Alcohol Use: None Do you use any recreational Drugs:: No Lives With: Family Lives Where: Home - infectious screening In the last 2 months have you had wt loss of >10#?: NO Have you had fever, night sweats or hemotysis?: No Have you traveled outside the country in the last 6 months?: No Isolation: Standard ROS - Review of Systems Constitutional: Fever, Weakness, Fatigue. negative: Chills Eyes: No Symptoms Reported. negative: Eye Pain, Discharge ENTM: Ear Discharge, Nose Discharge, Nose Congestion, Throat Pain Respiratoy: Productive Cough, Short of Breath, Wheezing Cardiovascular: Chest Pain Gastrointestinal/Abdominal: No Symptoms Reported Genitourinary: No Symptoms Reported Neurological: No Symptoms Reported Musculoskeletal: Muscle Pain Integumentary: No Symptoms Reported Hematologic/Lymphatic: No Symptoms Reported Endocrine: No Symptoms Reported All Other Systems: Reviewed and Negative PE - Vital Signs Vitals: Temperature 97.4 F Pulse Rate 95 Respiratory Rate 18 Blood Pressure [Right Arm] 123/73 Blood Pressure [Left Arm] 134/77 Blood Pressure 131/72 O2 Sat by Pulse Oximetry 96 - General Limitations: No Limitations General Appearance: Alert - Head Head Exam: Normal Inspection - Eyes Eye exam: Normal Appearance - ENT ENT Exam: Normal External Ear Exam External Ear Exam: Normal External Inspection TM/Canal Exam: Bilateral Bulging Nose Exam: Other (NASAL CANAL HYPEREMIC) Mouth Exam: Normal Inspection Throat Exam: Normal Inspection - Chest Chest Inspection: Symmetric Chest Wall Rise - Respiratory Respiratory Exam: Normal Lung Sounds Bilat Respiratory Exam: Bilateral Wheezing, Bilateral Rhonchi, Upper Wheezing, Upper Rhonchi, Lower Wheezing, Lower Rhonchi - Cardiovascular Cardiovascular Exam: Regular Rate, Normal Rhythm, Normal Heart Sounds - Abdominal Exam Abdominal Exam: Normal Bowel Sounds, Soft. negative: Tenderness - Extremities Extremities Exam: Normal Inspection - Back Back Exam: Normal Inspection - Neurologic Neurological Exam: Alert, Oriented X3 - Psychiatric Psychiatric Exam: Anxious - Skin Skin Exam: Erythema MDM - Differential Diagnosis Differential Diagnosis: BRONCHITIS, PNEUMONIA, CHEST PAIN, DE, SINUSITIS Course - Treatment Treatment: SEE ORDERS. NEB TREATMENT IN ED. - Reevaluation 1st: Improved - Education/Counseling Education/Counseling: Patient, Education Educated On: Treatment, Diagnosis, Needs for Follow Up ROR - Labs Reviewed Laboratory Results Reviewed?: Yes Result Diagrams: 11/12/17 14:20 11/12/17 14:20 Laboratory: WBC 7.9 X10^3/uL (3.6-10.0) 11/12/17 14:20 RBC 5.18 X10^6/uL (3.5-5.4) 11/12/17 14:20 Hgb 16.9 g/dL (12.0-16.0) H 11/12/17 14:20 Hct 49.4 % (36.0-47.0) H 11/12/17 14:20 MCV 95.3 fL (80.0-100.0) 11/12/17 14:20 MCH 32.5 pg (27.0-34.0) 11/12/17 14:20 MCHC 34.1 g/dL (33.0-35.0) 11/12/17 14:20 RDW 12.7 % (11.6-16.5) 11/12/17 14:20 Plt Count 200 X10^3/uL (150.0-450.0) 11/12/17 14:20 MPV 9.7 fL (7.4-11.0) 11/12/17 14:20 Neut % 57.2 % (42.0-75.0) 11/12/17 14:20 Lymph % 29.7 % (21.0-51.0) 11/12/17 14:20 Hardy % 8.4 % (0.0-13.0) 11/12/17 14:20 Eos % 3.9 % (0.9-2.9) H 11/12/17 14:20 Baso % 0.8 % (0.2-1.0) 11/12/17 14:20 Neut # 4.5 x10^3/uL (2.2-4.8) 11/12/17 14:20 Lymph # 2.4 X10^3/uL (1.3-2.9) 11/12/17 14:20 Hardy # 0.7 x10^3/uL (0.3-0.8) 11/12/17 14:20 Eos # 0.3 x10^3/uL (0.0-0.2) H 11/12/17 14:20 Baso # 0.1 X10^3/uL (0.0-0.1) 11/12/17 14:20 Absolute Nucleated RBC 0.0 /100WBC 11/12/17 14:20 Sodium 142 mmol/L (136-145) 11/12/17 14:20 Corrected Sodium TNP 11/12/17 14:20 Potassium 3.8 mmol/L (3.5-5.1) 11/12/17 14:20 Chloride 104 mmol/L (98-107) 11/12/17 14:20 Carbon Dioxide 29.5 mmol/L (21-32) 11/12/17 14:20 BUN 10 mg/dL (7-18) 11/12/17 14:20 Creatinine 0.76 mg/dL (0.55-1.02) 11/12/17 14:20 Est GFR (MDRD) Af Amer > 60 (>60) 11/12/17 14:20 Est GFR (MDRD) Non-Af > 60 (>60) 11/12/17 14:20 Glucose 76 mg/dL (65-99) 11/12/17 14:20 Calcium 9.7 mg/dL (8.5-10.1) 11/12/17 14:20 Corrected Calcium TNP 11/12/17 14:20 Total Bilirubin 0.60 mg/dL (0.2-1.0) 11/12/17 14:20 AST 23 Units/L (15-37) 11/12/17 14:20 ALT 24 Units/L (12-78) 11/12/17 14:20 Alkaline Phosphatase 103 Units/L (46-116) 11/12/17 14:20 Creatine Kinase 70 Units/L (26-192) 11/12/17 14:20 CK-MB (CK-2) 1.5 ng/mL (0-4.0) 11/12/17 14:20 CK/CKMB % Calc 2.1 % (<4) 11/12/17 14:20 Troponin I < 0.02 ng/mL (0-1.5) 11/12/17 14:20 Total Protein 8.4 g/dL (6.4-8.2) H 11/12/17 14:20 Albumin 4.0 g/dL (3.4-5.0) 11/12/17 14:20 Globulin 4.4 g/dL (2.5-4.5) 11/12/17 14:20 Albumin/Globulin Ratio 0.9 Ratio (1.1-2.1) L 11/12/17 14:20 - XRAY XRAY Interpreted by: Radiologist XRAY Findings: REPORT DISCUSS WITH PATIENT. - EKG Rhythm: NSR (EKG NOTED) - Diagnosis Discharge Problem: Bronchitis Sinusitis Qualifiers: Sinusitis location: unspecified location Chronicity: acute Recurrence: not specified as recurrent Qualified Code(s): J01.90 - Acute sinusitis, unspecified - Discharge Plan Disposition: HOME, SELF-CARE Condition: Stable Prescriptions: Albuterol Sulfate [VENTOLIN or PROAIR HFA] 2 puff INH QID PRN #1 inh PRN Reason: Asthma Symptoms Amoxicillin [Amoxil 875 mg] 875 mg PO Q12H #20 tab Fluticasone Nasal [place] [FLONASE NASAL SPRAY *] 2 sprays ENOSTRIL DAILY #1 each - Follow ups/Referrals Follow ups/Referrals: JACQUES GILMORE [Primary Care Provider] - 3 days - Instructions Instructions: Sinusitis, Adult, [id number], Acute Bronchitis, [id number], Chest Pain Observation
[2017-11-12] MEDS ORDERED: DECADRON INJ ONE (14:22)
[2017-11-12] MEDS ORDERED: DUONEB 0.5 MG/3 MG ONE (14:27)
[2017-11-12 14:32] LABS: BASOPHILS # (AUTO) 0.1 X10^3/uL (0.0-0.1); BASOPHILS % (AUTO) 0.8 % (0.2-1.0); EOSINOPHILS # (AUTO) 0.3 x10^3/uL (0.0-0.2); EOSINOPHILS % (AUTO) 3.9 % (0.9-2.9); HEMATOCRIT 49.4 % (36.0-47.0); HEMOGLOBIN 16.9 g/dL (12.0-16.0); LYMPHOCYTES # (AUTO) 2.4 X10^3/uL (1.3-2.9); LYMPHOCYTES % (AUTO) 29.7 % (21.0-51.0); MEAN CORPUSCULAR HEMOGLOBIN 32.5 pg (27.0-34.0); MEAN CORPUSCULAR HGB CONC 34.1 g/dL (33.0-35.0); MEAN CORPUSCULAR VOLUME 95.3 fL (80.0-100.0); MEAN PLATELET VOLUME 9.7 fL (7.4-11.0); MONOCYTES # (AUTO) 0.7 x10^3/uL (0.3-0.8); MONOCYTES % (AUTO) 8.4 % (0.0-13.0); NEUTROPHILS # (AUTO) 4.5 x10^3/uL (2.2-4.8); NEUTROPHILS % (AUTO) 57.2 % (42.0-75.0); PLATELET COUNT 200 X10^3/uL (150.0-450.0); RED BLOOD COUNT 5.18 X10^6/uL (3.5-5.4); RED CELL DISTRIBUTION WIDTH 12.7 % (11.6-16.5); WHITE BLOOD COUNT 7.9 X10^3/uL (3.6-10.0)
--- NOTE | 2017-11-12 14:35 | RAD ---
Examination: AP chest History: SOB, hypertension, CVA Comparison 09/06/2017 Findings: Continued normal heart size with clear lungs and pleural spaces. There is arteriosclerotic dilatation of the aorta especially the ascending limb. Impression: No change or acute abnormality. Aortic configuration consistent with history of hypertens ion. Reported By:
[2017-11-12 14:45] LABS: BLOOD UREA NITROGEN 10 mg/dL (7-18); CALCIUM 9.7 mg/dL (8.5-10.1); CARBON DIOXIDE 29.5 mmol/L (21-32); CHLORIDE 104 mmol/L (98-107); CREATININE 0.76 mg/dL (0.55-1.02); SODIUM 142 mmol/L (136-145); TROPONIN I < 0.02 ng/mL (0-1.5); eGFR BLACK RACES > 60 (>60); eGFR NON BLACK RACES > 60 (>60)
[2017-11-12 14:50] LABS: ALANINE AMINOTRANSFERASE 24 Units/L (12-78); ALKALINE PHOSPHATASE 103 Units/L (46-116); ASPARTATE AMINO TRANSFERASE 23 Units/L (15-37); CKMB % 2.1 % (<4); CREATINE KINASE 70 Units/L (26-192); CREATINE KINASE MB 1.5 ng/mL (0-4.0); TOTAL PROTEIN 8.4 g/dL (6.4-8.2)
== END 2017-11-12 15:19 | disposition home or self-care (01) ==
LOC: ER 13:06
DX: J40 Bronchitis, not specified as acute or chronic (principal); J01.80 Other acute sinusitis; Z72.0 Tobacco use
CPT/HCPCS: 36415; 71045; 80053; 82550; 82553; 84484; 85025; 93005; 93010; 96372; 99282; 99283; 99284; J1100; J7620

== ENCOUNTER → 2017-12-07 | Outpatient (CLI) | payer MEDICAID ==
[2017-11-12 13:10] VITALS: BP 131/72
[2017-12-07 08:42] LABS: BASOPHILS # (AUTO) 0.1 X10^3/uL (0.0-0.1); BASOPHILS % (AUTO) 0.9 % (0.2-1.0); EOSINOPHILS # (AUTO) 0.2 x10^3/uL (0.0-0.2); EOSINOPHILS % (AUTO) 2.7 % (0.9-2.9); HEMATOCRIT 44.7 % (36.0-47.0); HEMOGLOBIN 15.4 g/dL (12.0-16.0); LYMPHOCYTES # (AUTO) 1.9 X10^3/uL (1.3-2.9); LYMPHOCYTES % (AUTO) 30.1 % (21.0-51.0); MEAN CORPUSCULAR HEMOGLOBIN 32.9 pg (27.0-34.0); MEAN CORPUSCULAR HGB CONC 34.5 g/dL (33.0-35.0); MEAN CORPUSCULAR VOLUME 95.4 fL (80.0-100.0); MEAN PLATELET VOLUME 9.8 fL (7.4-11.0); MONOCYTES # (AUTO) 0.4 x10^3/uL (0.3-0.8); MONOCYTES % (AUTO) 6.8 % (0.0-13.0); NEUTROPHILS # (AUTO) 3.8 x10^3/uL (2.2-4.8); NEUTROPHILS % (AUTO) 59.5 % (42.0-75.0); PLATELET COUNT 210 X10^3/uL (150.0-450.0); RED BLOOD COUNT 4.69 X10^6/uL (3.5-5.4); WHITE BLOOD COUNT 6.4 X10^3/uL (3.6-10.0)
[2017-12-07 09:04] LABS: ALANINE AMINOTRANSFERASE 29 Units/L (12-78); ALBUMIN 3.6 g/dL (3.4-5.0); ALKALINE PHOSPHATASE 87 Units/L (46-116); ASPARTATE AMINO TRANSFERASE 27 Units/L (15-37); BLOOD UREA NITROGEN 16 mg/dL (7-18); CARBON DIOXIDE 28.8 mmol/L (21-32); CHLORIDE 105 mmol/L (98-107); CHOL/HDL RATIO 2.4 (0.0-5.0); CHOLESTEROL 204 mg/dL (0-200); CREATININE 0.65 mg/dL (0.55-1.02); HDL CHOLESTEROL 84 mg/dL (40-60); SODIUM 139 mmol/L (136-145); TOTAL PROTEIN 7.2 g/dL (6.4-8.2); TRIGLYCERIDES 85 mg/dL (0-150); eGFR BLACK RACES > 60 (>60); eGFR NON BLACK RACES > 60 (>60)
--- NOTE | 2017-12-07 12:10 | RAD ---
Examination: Left foot, three views History: Left foot pain Comparison 02/21/2017 Findings: Again are noted the postsurgical findings which may be related to previous hallux valgus co rrection. No acute fracture or bone destruction. There is a small plantar calcaneal enthesophyte. Impression: No acute findings. Postsurgical findings with small plantar calcaneal spur. Reported By:
--- NOTE | 2017-12-07 12:21 | RAD ---
Examination: Thoracic spine, AP and lateral views History: Pain in upper back Findings: Normal curvature, segmentation and alignment. No acute fracture, pedicle destruction or par aspinal mass. Disc narrowing with marginal osteophytes are noted at multiple levels. Impression: No acute process. Degenerative thoracic spondylosis of moderate degree. Reported By:
--- NOTE | 2017-12-07 12:22 | RAD ---
Examination: Right foot, three views History: Pain in foot Findings: Degenerative narrowing with osteophyte formation at the 1st MTP joint. No fracture or bone destruction identified. There is a small plantar calcaneal enthesophyte. No soft tissue calcification identified. Impression: 1st MTP joint osteoarthritis. Small plantar calcaneal spur. No acute features identified. Reported By:
--- NOTE | 2017-12-07 12:30 | RAD ---
Examination: Cervical spine, five views History: Pain Findings: Normal segmentation and alignment. Surgical fixation hardware is present at C5-6. Extensive degenerative disc narrowing and osteophyte formation noted at C4-5 and C6-7. There is osteophyte ca rowing of lower neural foramina bilaterally. No acute fracture, hardware abnormality, infection or khanh ne destruction. Impression: 1. Status post ACDF C5-6. 2. Degenerative disc disease and spondylosis at levels immediately above and below the fusion. 3. Degenerative narrowing of bilateral lower cervical neural foramina. Reported By:
--- NOTE | 2017-12-07 12:35 | RAD ---
Examination: Lumbar spine, five views History: Back pain Findings: Normal segmentation and alignment. No localized disc deformity, bone destruction, fracture or sacroiliac abnormality. Impression: No acute or significant lumbar Reported By:
[2017-12-08 20:43] LABS: HEPATITIS A ANTIBODY IGM Negative (Negative)
[2017-12-10 06:27] LABS: HEPATITIS B CORE IGM Negative (Negative); HEPATITIS B SURFACE ANTIGEN Negative (Negative)
== END | disposition home or self-care (01) ==
LOC: LAB 08:09
PROVIDERS: ATTEND Nurse Practitioner Family
DX: E78.4 Other hyperlipidemia (principal); Z20.2 Contact with and (suspected) exposure to infections with a predominantly sexual mode of transmission; I10 Essential (primary) hypertension; M79.671 Pain in right foot; M79.672 Pain in left foot; M54.5 Low back pain; M54.6 Pain in thoracic spine; M50.321 Other cervical disc degeneration at C4-C5 level; M47.894 Other spondylosis, thoracic region
CPT/HCPCS: 36415; 72050; 72072; 72110; 73630; 80053; 80061; 80074; 85025; 86592; 86701

== ENCOUNTER 2017-12-08 06:27 | Emergency (ER) | payer MEDICAID ==
[2017-12-08 06:36] VITALS: BP 143/83; BMI 21.0
--- NOTE | 2017-12-08 07:33 | RAD ---
Examination: Right wrist, three views History: Trauma Findings: There is a linear lucent defect involving the radial styloid process. Slight associated sof t tissue swelling is suggested. The carpal complex is intact. No ulnar abnormality is noted. Impression: Findings consistent with undisplaced intra-articular fracture of the radial styloid proce ss. Correlate clinically. Reported By:
[2017-12-08] MEDS ORDERED: TORADOL 60 MG VIAL ONE (07:35)
[2017-12-08] MEDS ORDERED: TORADOL 60 MG VIAL IM ONE (07:38)
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
== END 2017-12-08 07:59 | disposition home or self-care (01) ==
LOC: ER 06:27
DX: S52.514A Nondisplaced fracture of right radial styloid process, initial encounter for closed fracture (principal); Y04.0XXA Assault by unarmed brawl or fight, initial encounter; Y92.9 Unspecified place or not applicable
CPT/HCPCS: 73100; 96372; 99282; 99283; J1885

== ENCOUNTER → 2017-12-18 | Outpatient (CLI) | payer MEDICAID ==
[2017-12-08 06:36] VITALS: BP 143/83
--- NOTE | 2017-12-19 08:27 | MG ---
HISTORY: SCREENING, no known breast problems; patient states last prior mammogram was 20 years ago a nd images not available Comparison: None available FINDINGS: CC and MLO projections of the right and left breast were obtained. Scattered fibroglandular tissue i s present. There is a 7 mm nodular density in the upper outer right breast are partially obscured on the MLO projection for which further evaluation is recommended. No significant architectural distorti on, mass or clustered microcalcifications can be observed to suggest malignancy. No skin thickening or nipple retraction is appreciated. No pathological lymphadenopathy can be identified. There are sc attered benign calcifications present both breasts. IMPRESSION: Nodular density in the upper outer right breast for which further evaluation with spot c ompression views and targeted ultrasound is recommended. ACR CATEGORY 0: Assessment incomplete; additional imaging is needed. Diagnostic CAD was utilized and reviewed. * 0 (ZERO) - ASSESSMENT INCOMPLETE; ADDITIONAL IMAGING IS NEEDED. * / (ONE) - NEGATIVE. * 2/II (TWO) - BENIGN FINDINGS. * 3/III (THREE) - PROBABLY BENIGN FINDING; SHORT INTERVAL FOLLOW-UP SUGGESTED. * 4/IV (FOUR) - SUSPICIOUS ABNORMALITY; BIOPSY SHOULD BE CONSIDERED. * 5/V - HIGHLY SUSPICIOUS OF MALIGNANCY; BIOPSY SHOULD BE PERFORMED. A NEGATIVE X-RAY REPORT SHOULD NOT DELAY BIOPSY IF A DOMINANT OR CLINICALLY SUSPICIOUS MASS IS PRESENT; 4 TO 8 PERCENT OF CANCERS ARE NOT IDENTIFIED BY X-RAY. A NEGA TIVE REPORT MAY REINFORCE THE CLINICAL IMPRESSION. ADENOSIS AND DENSE BREASTS MAY OBSCURE AN UNDERLY ING NEOPLASM. Reported By:
== END ==
LOC: RAD 11:34
PROVIDERS: ATTEND Nurse Practitioner Family
DX: Z12.31 Encounter for screening mammogram for malignant neoplasm of breast (principal); R92.8 Other abnormal and inconclusive findings on diagnostic imaging of breast
CPT/HCPCS: 77067

== ENCOUNTER → 2017-12-25 | Outpatient (CLI) | payer MEDICAID ==
[2017-12-08 06:36] VITALS: BP 143/83
--- NOTE | 2017-12-25 15:17 | MG ---
HISTORY: Right breast focal asymmetry Comparison: 12/18/2017 Diagnostic right mammogram FINDINGS: Spot compression CC and MLO views of the right breast were obtained as well as mediolateral view. The previously described focal asymmetry within the upper-outer quadrant of the right breast mid to post erior depth partially persists on spot compression views but is improved in appearance with interveni ng lucency. Targeted sonography of the right breast demonstrates a smoothly marginated hypoechoic ovo id nodule located at the 11 o'clock position, approximately 2 cm from the nipple. This ovoid nodule h as imaging characteristics suggestive of a small intramammary lymph node which measures approximately 5 mm x 2 mm in greatest dimensions. However, given its proximity to the nipple, this nodule is not f avored to correspond to the mammographic focal asymmetry. No significant architectural distortion, ma ss or clustered microcalcifications can be observed to suggest malignancy. Benign-appearing calcific ations are noted. IMPRESSION: 1. Partial persistent but improved appearance of right breast focal asymmetry on spot compression vie ws without definite corresponding sonographic abnormality, possibly reflecting normal fibroglandular parenchyma. There is a small ovoid nodule within the right breast on targeted sonography. However, gi aleja its proximity to nipple, this nodule is not favored to correspond to the mammographic focal asymm etry. These findings are most likely benign in nature. However, given lack of prior exams with which to compare, short interval mammographic and sonographic follow-up is recommended. ACR CATEGORY 3 - probably benign finding; short interval follow-up suggested Diagnostic right mammogram and targeted sonography of the right breast recommended in 6 months Diagnostic CAD was utilized and reviewed. * 0 (ZERO) - ASSESSMENT INCOMPLETE; ADDITIONAL IMAGING IS NEEDED. * 1/1 (ONE) - NEGATIVE. * 2/II (TWO) - BENIGN FINDINGS. * 3/III (THREE) - PROBABLY BENIGN FINDING; SHORT INTERVAL FOLLOW-UP SUGGESTED. * 4/IV (FOUR) - SUSPICIOUS ABNORMALITY; BIOPSY SHOULD BE CONSIDERED. * 5/V - HIGHLY SUSPICIOUS OF MALIGNANCY; BIOPSY SHOULD BE PERFORMED. A NEGATIVE X-RAY REPORT SHOULD NOT DELAY BIOPSY IF A DOMINANT OR CLINICALLY SUSPICIOUS MASS IS PRESENT; 4 TO 8 PERCENT OF CANCERS ARE NOT IDENTIFIED BY X-RAY. A NEGA TIVE REPORT MAY REINFORCE THE CLINICAL IMPRESSION. ADENOSIS AND DENSE BREASTS MAY OBSCURE AN UNDERLY ING NEOPLASM. Reported By:
--- NOTE | 2017-12-25 15:19 | US ---
HISTORY: Right breast focal asymmetry Study: Right breast sonogram Comparison: Diagnostic mammogram performed on same day Technique: Multiple grayscale and color flow images of the right breast were obtained. Findings: Imaging of the right breast demonstrates a smoothly marginated hypoechoic ovoid nodule located at the 11 o'clock position, approximately 2 cm from the nipple. The nodule is horizontally oriented and dem onstrates increased through transmission. There is a small echogenic notch located eccentrically with in the nodule, suggesting that the nodule may represent a small intramammary lymph node. However, giv en its proximity to the nipple, the nodule is not favored to correspond to the mammographic focal asy mmetry. No definite sonographic abnormality is identified corresponding to the mammographic focal asy mmetry. IMPRESSION: 1. No definite mammographic abnormality identified corresponding to the mammographic focal asymmetry. Please see above discussion, and please see diagnostic mammogram report. Reported By:
== END ==
LOC: RAD 12:57
PROVIDERS: ATTEND Nurse Practitioner Family
DX: R92.8 Other abnormal and inconclusive findings on diagnostic imaging of breast (principal)
CPT/HCPCS: 76642; 77065

== ENCOUNTER 2018-01-15 11:23 | Emergency (ER) | payer MEDICAID ==
[2018-01-15 11:29] VITALS: BP 143/78; BMI 20.5
--- NOTE | 2018-01-15 11:45 | DR.GENAD ---
HPI - PCP Primary Care Physician: MAIRA SAMPSON - Complaint/Symptoms Chief Complaint:: PT. STATES SHE BROKE HER ARM ABOUT 6 WEEKS AGO AND WAS PLACED IN A CAST [address] JENSEN. PT. HAS AN AREA TO RIGHT THUMB WHERE CAST HAS RUBBED HER SKIN CREATING A WOUND. PT. STATES THE AREA WAS DRAINING GREEN PUS AND SHE KNOWS IT'S INFECTED. PT. ALSO STATES SHE HAS FELT DRAINED AND BEEN RUNNING FEVER. PT. REQUESTS FOR CAST TO BE TAKEN OFF. AREA IS NOT ACTIVELY DRAINING AT TIME OF TRIAGE. NO REDNESS NOTED TO SITE. - Nurses notes reviewed Nurses Notes Review: Yes - Source History Provided: Patient - Mode of Arrival Mode of Arrival: Ambulatory - Timing Onset of Chief Complaint: 01/11/18 Came on: Suddenly - Duration Duration: Constant Duration: Days - Severity Severity: Moderate PMH - PMH Past Medical History: Yes Past Medical History: Arthritis, Coronary Artery Disease, Migraines, GERD, Headaches, Hypertension Past Medical History Comment: DIVERTICULITIS Past Surgical History: Yes Surgical History: Angioplasty/Stents, Hysterectomy, Ortho Surgery, Tonsillectomy - Family History History of Family Medical Conditions: Yes Family Medical History: Cancer, [place], Coronary Artery Disease, Heart Failure, Sudden Cardiac , Hypertension - Social History Does patient currently use any type of tobacco product: Yes Have you used tobacco products in the last 12 months: Yes Type of Tobacco Use: Cigarettes Does any household member use tobacco: No Alcohol Use: Rarely Do you use any recreational Drugs:: No Lives With: Alone Lives Where: Home - infectious screening In the last 2 months have you had wt loss of >10#?: NO Have you had fever, night sweats or hemotysis?: No Have you traveled outside the country in the last 6 months?: No Isolation: Standard ROS - Review of Systems Constitutional: No Symptoms Reported Eyes: No Symptoms Reported ENTM: No Symptoms Reported Respiratoy: No Symptoms Reported Cardiovascular: No Symptoms Reported Gastrointestinal/Abdominal: No Symptoms Reported Genitourinary: No Symptoms Reported Neurological: No Symptoms Reported Musculoskeletal: Right, Hand Integumentary: No Symptoms Reported Hematologic/Lymphatic: No Symptoms Reported Endocrine: No Symptoms Reported All Other Systems: Reviewed and Negative PE - Vital Signs Vitals: Temperature 98 F Pulse Rate 106 Respiratory Rate 18 Blood Pressure [Right Arm] 123/73 Blood Pressure [Left Arm] 134/77 Blood Pressure 143/78 O2 Sat by Pulse Oximetry 96 - General Limitations: No Limitations General Appearance: Alert - Head Head Exam: Normal Inspection - Eyes Eye exam: Normal Appearance - ENT ENT Exam: Normal External Ear Exam External Ear Exam: Normal External Inspection Throat Exam: Normal Inspection - Neck Neck Exam: Trachea Midline - Chest Chest Inspection: Symmetric Chest Wall Rise - Respiratory Respiratory Exam: Normal Lung Sounds Bilat Respiratory Exam: Bilateral Clear to Auscultation - Cardiovascular Cardiovascular Exam: Regular Rate, Normal Rhythm, Normal Heart Sounds - Abdominal Exam Abdominal Exam: Normal Bowel Sounds, Soft. negative: Tenderness - Extremities Extremities Exam: Tenderness (RT INNER THUMB WITH INFLAME CALUS AND TENDERNESS.PULSES INTACT.) - Neurologic Neurological Exam: Alert, Oriented X3 - Psychiatric Psychiatric Exam: Normal Affect, Normal Mood - Skin Skin Exam: Erythema Course - Treatment Treatment: SEE ORDERS. - Consultation Consultation Comments: DR. JENSEN IN ED. HE CUT PORTION OF CAST NEAR THUMB. HE INSTRUCTED PATIENT TO SEE HIM ON SUNDAY. HE WANT HER TO HAVE KEFLEX FOR NEXT 10 DAYS - Education/Counseling Education/Counseling: Patient, Education Educated On: Diagnosis, Needs for Follow Up ROR - Labs Reviewed Laboratory Results Reviewed?: Yes Result Diagrams: 01/15/18 12:10 Laboratory: WBC 7.1 X10^3/uL (3.6-10.0) 01/15/18 12:10 RBC 4.57 X10^6/uL (3.5-5.4) 01/15/18 12:10 Hgb 15.2 g/dL (12.0-16.0) 01/15/18 12:10 Hct 43.5 % (36.0-47.0) 01/15/18 12:10 MCV 95.1 fL (80.0-100.0) 01/15/18 12:10 MCH 33.2 pg (27.0-34.0) 01/15/18 12:10 MCHC 34.9 g/dL (33.0-35.0) 01/15/18 12:10 RDW 13.6 % (11.6-16.5) 01/15/18 12:10 Plt Count 179 X10^3/uL (150.0-450.0) 01/15/18 12:10 MPV 9.3 fL (7.4-11.0) 01/15/18 12:10 Neut % 64.2 % (42.0-75.0) 01/15/18 12:10 Lymph % 26.9 % (21.0-51.0) 01/15/18 12:10 Bowie % 6.3 % (0.0-13.0) 01/15/18 12:10 Eos % 1.1 % (0.9-2.9) 01/15/18 12:10 Baso % 1.5 % (0.2-1.0) H 01/15/18 12:10 Neut # 4.5 x10^3/uL (2.2-4.8) 01/15/18 12:10 Lymph # 1.9 X10^3/uL (1.3-2.9) 01/15/18 12:10 Bowie # 0.4 x10^3/uL (0.3-0.8) 01/15/18 12:10 Eos # 0.1 x10^3/uL (0.0-0.2) 01/15/18 12:10 Baso # 0.1 X10^3/uL (0.0-0.1) 01/15/18 12:10 Absolute Nucleated RBC 0.0 /100WBC 01/15/18 12:10 - XRAY XRAY Findings: REPORT DISCUSS WITH PATIENT. - Diagnosis Discharge Problem: Cellulitis of thumb, right - Discharge Plan Disposition: 01 HOME, SELF-CARE Condition: Stable Prescriptions: Cephalexin [KEFLEX CAP 500 MG *] 500 mg PO TID #30 cap - Follow ups/Referrals Follow ups/Referrals: CORRY BURNETTE [Primary Care Provider] - 3 days - Instructions Instructions: Cellulitis, Adult, Agve-[id number]-[id number] Additional Instructions: RETUNE TO ED IF WORSE.
[2018-01-15 12:19] LABS: BASOPHILS # (AUTO) 0.1 X10^3/uL (0.0-0.1); BASOPHILS % (AUTO) 1.5 % (0.2-1.0); EOSINOPHILS # (AUTO) 0.1 x10^3/uL (0.0-0.2); EOSINOPHILS % (AUTO) 1.1 % (0.9-2.9); HEMATOCRIT 43.5 % (36.0-47.0); HEMOGLOBIN 15.2 g/dL (12.0-16.0); LYMPHOCYTES # (AUTO) 1.9 X10^3/uL (1.3-2.9); LYMPHOCYTES % (AUTO) 26.9 % (21.0-51.0); MEAN CORPUSCULAR HEMOGLOBIN 33.2 pg (27.0-34.0); MEAN CORPUSCULAR HGB CONC 34.9 g/dL (33.0-35.0); MEAN CORPUSCULAR VOLUME 95.1 fL (80.0-100.0); MEAN PLATELET VOLUME 9.3 fL (7.4-11.0); MONOCYTES # (AUTO) 0.4 x10^3/uL (0.3-0.8); MONOCYTES % (AUTO) 6.3 % (0.0-13.0); NEUTROPHILS # (AUTO) 4.5 x10^3/uL (2.2-4.8); NEUTROPHILS % (AUTO) 64.2 % (42.0-75.0); PLATELET COUNT 179 X10^3/uL (150.0-450.0); RED BLOOD COUNT 4.57 X10^6/uL (3.5-5.4); RED CELL DISTRIBUTION WIDTH 13.6 % (11.6-16.5); WHITE BLOOD COUNT 7.1 X10^3/uL (3.6-10.0)
--- NOTE | 2018-01-15 12:54 | RAD ---
Indication: Pain Exam: Right hand series. Comparison: 12/08/2017. Findings: There is overlying casting material which is partially obscuring the hand and wrist. Again noted is the previously described nondisplaced radial styloid process fracture which is unchanged in alignment. The visualized ulna and carpal bones are intact. The digits appear intact. No erosions are seen there is no periosteal reaction. Impression: Overlying casting material partially obscuring the hand and wrist. Nondisplaced radial styloid process fracture which is unchanged in alignment otherwise, unremarkable. Reported By:
== END 2018-01-15 13:14 | disposition home or self-care (01) ==
LOC: ER 11:31
DX: L03.011 Cellulitis of right finger (principal); Z46.89 Encounter for fitting and adjustment of other specified devices
CPT/HCPCS: 36415; 73130; 85025; 99282; 99284

== ENCOUNTER → 2018-02-22 | Outpatient (CLI) | payer MEDICAID ==
--- NOTE | 2018-02-22 10:32 | RAD ---
Examination: Right wrist, three views History: Follow-up fracture Comparison 12/08/2017 Findings: A cast is present over the extremity, decreasing radiographic detail. There is increased sc lerosis at the distal radius compatible with interval healing of radial styloid fracture. No residual fracture line is visible. There is no evidence for re-injury. There is suggestion of slight narrowin g of the radiocarpal joint. Impression: Apparent healing of distal right radial fracture with no new injury demonstrated. Reported By:
== END ==
LOC: RAD 10:08
PROVIDERS: ATTEND Orthopaedic Surgery
DX: S52.501A Unspecified fracture of the lower end of right radius, initial encounter for closed fracture (principal); X58.XXXA Exposure to other specified factors, initial encounter
CPT/HCPCS: 73100